=== PATIENT | female | born 1980 ===

== ENCOUNTER 2016-08-19 17:06 | Emergency (ER) | payer BC, MEDICAID, OTHER ==
--- NOTE | 2016-08-19 18:23 | UC ---
UC General HPI - HPI Summary HPI Summary: 3 days of body aches fever, some loose stool usual urine out put red oval shaped rash on back of right leg---does not hurt or itch - History of Current Complaint Chief Complaint: UCGeneralIllness Stated Complaint: FEVER,BODY ACHES,RASH Time Seen by Provider: 08/19/16 18:15 Hx Obtained From: Patient Onset/Duration: Sudden Onset, Lasting Days - 3, Still Present Timing: Constant Onset Severity: Moderate Current Severity: Moderate Associated Signs & Symptoms: Positive: Diarrhea, Diaphoresis, Fever - Allergy/Home Medications Allergies/Adverse Reactions: Allergies Allergy/AdvReac Type Severity Reaction Status Date / Time No Known Allergies Allergy Verified 08/19/16 17:24 PMH/Surg Hx/FS Hx/Imm Hx Previously Healthy: Yes - Surgical History Surgical History: None - Family History Known Family History: Positive: Diabetes - Social History 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 Lives: With Family Alcohol Use: Rare Substance Use Type: None Smoking Status (MU): Heavy Every Day Tobacco Smoker Type: Cigarettes Amount Used/How Often: 1 ppd Length of Time of Smoking/Using Tobacco: +18 years Have You Smoked in the Last Year: Yes Household Exposure Type: Cigarettes Cessation Counseling: Counseled 3+Min - 10 Min Review of Systems Constitutional: Fever, Chills, Fatigue Skin: Rash Eyes: Negative ENT: Negative Respiratory: Cough Cardiovascular: Negative Gastrointestinal: Diarrhea Genitourinary: Negative Motor: Negative Neurovascular: Negative Musculoskeletal: Arthralgia - hips Neurological: Negative Psychological: Negative All Other Systems Reviewed And Are Negative: Yes Physical Exam Triage Information Reviewed: Yes Appearance: Well-Nourished, Ill-Appearing - mild, Pain Distress - mild Vital Signs: Initial Vital Signs Temp 97.7 F 08/19/16 17:19 Pulse 136 08/19/16 17:19 Resp 20 08/19/16 17:19 BP 122/84 08/19/16 17:19 Pulse Ox 99 08/19/16 17:19 Vital Signs Reviewed: Yes Eye Exam: Normal Eyes: Positive: Conjunctiva Clear ENT Exam: Normal ENT: Positive: Normal ENT inspection, Hearing grossly normal, Pharynx normal, TMs normal. Negative: Nasal congestion, Nasal drainage, Tonsillar swelling, Tonsillar exudate, Trismus, Muffled/hoarse voice Dental Exam: Normal Neck exam: Normal Neck: Positive: Supple, Nontender, No Lymphadenopathy Respiratory Exam: Normal Respiratory: Positive: Chest non-tender, Lungs clear, Normal breath sounds, No respiratory distress, No accessory muscle use Cardiovascular Exam: Normal Cardiovascular: Positive: RRR, No Murmur, Brisk Capillary Refill, Tachycardia Abdominal Exam: Normal Abdomen Description: Positive: Nontender, No Organomegaly, Soft Bowel Sounds: Positive: Present Musculoskeletal Exam: Normal Musculoskeletal: Positive: Strength Intact, ROM Intact, No Edema Neurological Exam: Normal Neurological: Positive: Alert, Muscle Tone Normal Psychological Exam: Normal Psychological: Positive: Normal Response To Family Skin Exam: Other Skin: Positive: Other - 4x2 inch erythemic area back of right leg Diagnostics - EKG Cardiac Rate: Tachycardia Cardiac Rhythm: Sinus: Normal Ectopy: None ST Segment: Normal Re-Evaluation - Re-Evaluation First Eval Change: Improved - feels better HR 100---body pain resolved-- Course/Dx - Course Course Of Treatment: Doxycycline, lab studies follow with pcp in 1 week - Differential Dx - Multi-Symptom Differential Diagnoses: Metabolic Abnormality, Urinary Tract Infection, Other - Lyme, Viral illness Provider Diagnoses: Erythema migranes, Lyme Discharge - Discharge Plan Condition: Stable Disposition: HOME Prescriptions: DOXYcycline CAP(*) [DOXYcycline 100MG CAP(*)] 100 mg PO BID #[id number] Patient Education Materials: Doxycycline (By mouth), Lyme Disease (ED) Forms: *Work Release Referrals: [facility] [Outside] - 1 Week
[2016-08-19] MEDS ORDERED: NS 0.9% 1000 ML* 1,000 ML IV ONE (18:48)
[2016-08-19] MEDS ORDERED: NS 0.9% 1000 ML* 500 ML IV ONE (20:04)
[2016-08-20 10:57] LABS: Hematocrit 41 % (35-47); Hemoglobin 14.1 g/dl (12.0-16.0); Mean Corpuscular HGB Conc 34 g/dl (31-36); Mean Corpuscular Hemoglobin 29 pg (27-31); Mean Corpuscular Volume 85 fL (80-97); Mean Platelet Volume 9 um3 (7.4-10.4); Red Blood Count 4.85 10^6/ul (4.0-5.4); Red Cell Distribution Width 14 % (10.5-15); White Blood Count 7.4 10^3/ul (3.5-10.8)
== END 2016-08-19 21:01 | disposition home or self-care (01) ==
LOC: UCEAST 17:06
DX: A69.20 Lyme disease, unspecified (principal); Z71.6 Tobacco abuse counseling; F17.210 Nicotine dependence, cigarettes, uncomplicated
CPT/HCPCS: 36415; 81003; 85025; 86618; 87502; 93005; 96360; 99202; G0463